=== PATIENT | female | born 1970 | race Caucasian/White ===

== ENCOUNTER 2017-03-17 23:42 | Emergency (ER) | payer BC, OTHER ==
[2017-03-18] MEDS ORDERED: IBUPROFEN 800 MG TABLET PO STA (01:09)
[2017-03-18] MEDS ORDERED: IBUPROFEN 800 MG TABLET PO ONE (01:10)
--- NOTE | 2017-03-18 01:53 | XRAY Preliminary Report ---
Exam: XR Knee 3 View LT IMPRESSION: Mild degenerative changes. No acute bony abnormality. [facility] SITE ID: [id number]
--- NOTE | 2017-03-18 01:56 | XRAY Report ---
EXAM: LEFT KNEE RADIOGRAPHY EXAM DATE: 03/18/2017 01:41 AM. CLINICAL HISTORY: Left knee pain. COMPARISON: None. TECHNIQUE: 3 views. FINDINGS: Bones: Normal. No fractures or bone lesions. Joints: Mild medial and lateral compartment narrowing with small marginal osteophytes. There is no blaise int effusion. Soft Tissues: Normal. No soft tissue swelling. IMPRESSION: Mild degenerative changes. No acute bony abnormality. [facility] Referring Provider Line: [phone] SITE ID: [id number]
--- NOTE | 2017-03-18 02:04 | ED Physician Documentation ---
PD HPI LOWER EXT INJURY - Stated complaint Stated Complaint: LT KNEE PAIN - Chief complaint Chief Complaint: General - History obtained from History obtained from: Patient - History of Present Illness PD HPI LOW EXT INJURY LOCATION: Left, Knee Type of injury: Other (No known injury.) Timing - onset: How many weeks ago (1) Timing - details: Waxing and waning Worsened by: Moving, Other (weight bearing) Associated symptoms: No: Weakness, Numbness Similar symptoms before: Diagnosis (She has undergone arthroscopic surgery for meniscus tear in the past.) - Additional information Additional information: The patient is a 46-year-old female who complains of left knee pain that has been waxing and waning for the past week. It is worse with movement or with weightbearing. She denies any specific injury. Her past history is significant for arthroscopic surgery for meniscus repair of her left knee several years ago. Her job requires her to stand for several hours each day. Review of Systems Constitutional: denies: Fever Nose: reports: Congestion Throat: denies: Sore throat Cardiac: denies: Chest pain / pressure Respiratory: denies: Dyspnea, Cough GI: denies: Abdominal Pain, Nausea : denies: Dysuria Skin: denies: Rash Musculoskeletal: reports: Joint pain (left knee). denies: Back pain Neurologic: denies: Focal weakness, Numbness PD PAST MEDICAL HISTORY - Past Medical History Cardiovascular: None Respiratory: None Neuro: None Endocrine/Autoimmune: None GI: GERD - Past Surgical History Past Surgical History: Yes Ortho: Arthroscopic surgery - Present Medications Home Medications: Ambulatory Orders Medication Instructions Recorded Confirmed Omeprazole [PriLOSEC] 20 mg PO DAILY 11/03/13 03/17/17 Loratadine [Claritin] 10 mg ORAL DAILY 12/06/15 03/17/17 HYDROcod/ACETAM 5/325 [[place] 5/325] 1 - 2 ea PO Q6H PRN #20 tablet 03/18/17 - Allergies Allergies/Adverse Reactions: Allergies Allergy/AdvReac Type Severity Reaction Status Date / Time meperidine HCl * Allergy Unknown Verified 12/06/15 08:24 [From Demerol] Penicillins Allergy Unknown Verified 12/06/15 08:24 - Social History Does the pt smoke?: No Smoking Status: Never smoker Does the pt drink ETOH?: No Does the pt have substance abuse?: No - Immunizations Immunizations are current?: Yes - POLST Patient has POLST: No PD ED PE NORMAL - Vitals Vital signs reviewed: Yes (Borderline systolic hypertension initially.) - General General: Alert and oriented X 3, Well developed/nourished, Other (Overweight.) - HEENT HEENT: Atraumatic - Neck Neck: No adenopathy - Cardiac Cardiac: RRR - Respiratory Respiratory: No respiratory distress - Back Back: No CVA TTP, No spinal TTP - Derm Derm: No rash - Extremities Extremities: No edema, No calf tenderness / cord, Other (There is tenderness to palpation over the infrapatellar aspect of the left knee, more medially than laterally. There is no tenderness to palpation over the medial or lateral joint lines, or in the popliteal fossa. There is no joint effusion appreciated. There is no warmth or erythema. She is able to extend fully and can flex the knee to 90, although flexion exacerbates her discomfort. Distal neurovascular is intact.) - Neuro Neuro: Alert and oriented X 3, No motor deficit, No sensory deficit Results - Vitals Vitals: Oxygen O2 Source Room air - Rads (name of study) left knee Radiology: Prelim report reviewed, EMP read contemporaneously, See rad report ( Mild degenerative changes. No acute bony abnormality.) PD MEDICAL DECISION MAKING - ED course Complexity details: reviewed results, re-evaluated patient, considered differential, d/w patient ED course: The patient's presentation is most consistent with internal derangement of the left knee. There is no clinical evidence to suggest septic joint, and I doubt ligamentous injury. X-ray of the knee reveals mild degenerative changes, with no acute bony abnormality. Treatment in the emergency department included application of a knee immobilizer, and administration of ibuprofen 800 mg orally. She is being discharged with prescription for Vicodin, 20 tablets. I discussed with her the diagnosis, symptomatic treatment and outpatient follow-up , as well as potentially worrisome signs or symptoms that should prompt reevaluation in the emergency department. Departure - Departure Disposition: 01 Home, Self Care Clinical Impression: Internal derangement of left knee Condition: Stable Instructions: ED Knee Pain UKO, ED Meniscal Injury Knee Poss Prescriptions: HYDROcod/ACETAM 5/325 [[place] 5/325] 1 - 2 ea PO Q6H PRN #20 tablet PRN Reason: Pain Comments: Use the knee immobilizer for comfort. Apply ice pack to your knee intermittently for the next 3 or 4 days. You can use ibuprofen, up to 800 mg 3 times daily for its anti-inflammatory effect. He can also use Vicodin as prescribed if needed for pain. Follow-up with your primary physician within 1-2 weeks. Call to schedule appointment. Return to the emergency department if you develop increasing pain or swelling of your knee, or otherwise worsening symptoms. Forms: Activity restrictions Discharge Date/Time: 03/18/17 02:15
[2017-03-18 02:15] VITALS: BP 132/81
== END 2017-03-18 02:15 | disposition home or self-care (01) ==
LOC: ED 23:42
DX: M23.92 Unspecified internal derangement of left knee (principal); Z98.890 Other specified postprocedural states
CPT/HCPCS: 73562; 99283; A9270

== ENCOUNTER 2017-06-06 21:50 | Emergency (ER) | payer BC ==
[2017-06-06] MEDS ORDERED: HYDROcod/ACET 5/325 Prepack 6 PO STA (22:13)
[2017-06-06] MEDS ORDERED: AZITHROMYCIN 250 MG TABLET PO STA (22:13)
--- NOTE | 2017-06-06 22:13 | ED Physician Documentation ---
PD HPI URI - Stated complaint Stated Complaint: FACE PRESSURE/SOA - Chief complaint Chief Complaint: Resp - History obtained from History obtained from: Patient - History of Present Illness Timing - onset: Other (Sick since yesterday with cough, sore throat, shortness of breath, severe facial and sinus pain and ear fullness. No fevers. She needs a note for work tomorrow.) Review of Systems Constitutional: reports: Fatigue. denies: Fever, Chills Ears: reports: Ear pain. denies: Loss of hearing, Drainage/discharge Nose: reports: Rhinorrhea / runny nose, Congestion, Sinus pressure / pain Throat: reports: Sore throat Respiratory: reports: Dyspnea, Cough GI: denies: Abdominal Pain PD PAST MEDICAL HISTORY - Past Medical History Past Medical History: Yes Cardiovascular: None Respiratory: None Neuro: None Endocrine/Autoimmune: None GI: GERD - Past Surgical History Past Surgical History: Yes Ortho: Arthroscopic surgery - Present Medications Home Medications: Ambulatory Orders Medication Instructions Recorded Confirmed Omeprazole [PriLOSEC] 20 mg PO DAILY 11/03/13 06/06/17 Loratadine [Claritin] 10 mg ORAL DAILY 12/06/15 06/06/17 Azithromycin [Zithromax] 250 mg PO DAILY #4 tablet 06/06/17 Guaifenesin/Pseudoephedrne HCl 1 each PO BID PRN #20 tab.er.12h 06/06/17 [Mucinex D ER 600-60 mg Tablet] Mometasone Furoate [Nasonex] 1 spray NS BID #1 spray.pump 06/06/17 - Allergies Allergies/Adverse Reactions: Allergies Allergy/AdvReac Type Severity Reaction Status Date / Time meperidine HCl * Allergy Unknown Verified 06/06/17 21:57 [From Demerol] Penicillins Allergy Unknown Verified 06/06/17 21:57 - Social History Does the pt smoke?: No Smoking Status: Never smoker Does the pt drink ETOH?: No Does the pt have substance abuse?: No - Immunizations Immunizations are current?: Yes - POLST Patient has POLST: No PD ED PE NORMAL - Vitals Vital signs reviewed: Yes - General General: Alert and oriented X 3, No acute distress - HEENT HEENT: PERRL, EOMI, Pharynx benign, Other (Very tender in both maxillary sinuses and she does have right otitis media, the oropharynx is normal.) - Neck Neck: Supple, no meningeal sign, No bony TTP, No bruit - Cardiac Cardiac: RRR, No murmur - Respiratory Respiratory: No respiratory distress, Clear bilaterally - Abdomen Abdomen: Soft, Non tender - Back Back: No CVA TTP, No spinal TTP - Extremities Extremities: No edema, No calf tenderness / cord - Neuro Neuro: Alert and oriented X 3, Normal speech - Psych Psych: Normal mood, Normal affect Results - Vitals Vitals: Vital Signs - 24 hr 06/06/17 06/06/17 06/06/17 21:56 22:07 22:37 Temperature 35.9 C L 36.5 C Heart Rate 78 83 82 Respiratory 18 18 14 Rate Blood Pressure 140/89 H 155/86 H 133/85 H O2 Saturation 99 98 100 Oxygen O2 Source Room air - EKG (time done) 2234 Rate: Rate (enter#) (70) Rhythm: NSR [place]: Normal Intervals: Normal [place] QRS: LVH Ischemia: Normal ST segments Computer interpretation: Agree with computer PD MEDICAL DECISION MAKING - ED course ED course: 46-year-old woman presents with viral URI symptoms and evidence of sinusitis and right otitis media. She is treated with Zithromax noting penicillin allergy , she needed a few pain pills for the facial pain and was given a prepack of Vicodin. Departure - Departure Disposition: 01 Home, Self Care Clinical Impression: ROM (right otitis media) Qualifiers: Otitis media type: suppurative Chronicity: acute Recurrence: not specified as recurrent Spontaneous tympanic membrane rupture: without spontaneous rupture Qualified Code(s): H66.001 - Acute suppurative otitis media without spontaneous rupture of ear drum, right ear Upper respiratory tract infection Qualifiers: URI type: unspecified viral URI Qualified Code(s): J06.9 - Acute upper respiratory infection, unspecified Condition: Good Record reviewed to determine appropriate education?: Yes Instructions: ED Otitis Media Acute Adult Prescriptions: Guaifenesin/Pseudoephedrne HCl [Mucinex D ER 600-60 mg Tablet] 1 each PO BID PRN #20 tab.er.12h PRN Reason: congestion Mometasone Furoate [Nasonex] 1 spray NS BID #1 spray.pump Azithromycin [Zithromax] 250 mg PO DAILY #4 tablet Comments: Call your doctor to arrange a follow-up appointment, make the next available appointment. In the interim, return anytime if worse or if new symptoms develop. Your blood pressure was elevated today on check into the emergency department. This does not mean that you have hypertension, it is a common phenomenon to come to the emergency department and have elevated blood pressure. I recommend that she see your primary care physician within the week to have it rechecked when you are feeling better. Forms: Activity restrictions Discharge Date/Time: 06/06/17 22:37
[2017-06-06] MEDS ORDERED: AZITHROMYCIN 250 MG TABLET PO ONE (22:36)
[2017-06-06] MEDS ORDERED: HYDROcod/ACET 5/325 Prepack 6 PO ONE (22:37)
[2017-06-06 22:38] VITALS: BP 133/85
== END 2017-06-06 22:37 | disposition home or self-care (01) ==
LOC: ED 21:50
DX: H66.001 Acute suppurative otitis media without spontaneous rupture of ear drum, right ear (principal); J06.9 Acute upper respiratory infection, unspecified; B34.9 Viral infection, unspecified; R03.0 Elevated blood-pressure reading, without diagnosis of hypertension
CPT/HCPCS: 93005; 99283; A9270

== ENCOUNTER 2017-07-03 06:03 | Emergency (ER) | payer OTHER, BC ==
[2017-07-03 06:11] VITALS: BP 157/105
--- NOTE | 2017-07-03 06:19 | ED Physician Documentation ---
PD HPI UPPER EXT INJURY - Stated complaint Stated Complaint: L WRIST INJURY - Chief complaint Chief Complaint: Ext Problem - History obtained from History obtained from: Patient - History of Present Illness Location: Left, Wrist Type of injury: Fall Where injury occurred: Work Timing - onset: How many minutes ago (30) Timing - details: Abrupt onset Improved by: Immobilization Worsened by: Moving, Palpating Contributing factors: No: Anticoagulated Similar symptoms before: Has not had sx before Recently seen: Not recently seen - Additonal information Additional information: Patient is a 46 year old female who is presenting to the emergency department for wrist pain. Patient was at work when some boxes fell, and eventually patient fell on an outstretched hand. Patient denies any other injuries at this time. Review of Systems Constitutional: denies: Fever, Chills Eyes: denies: Decreased vision Ears: reports: Reviewed and negative Nose: denies: Epistaxis Throat: reports: Reviewed and negative Cardiac: reports: Reviewed and negative Respiratory: denies: Cough, Wheezing GI: denies: Nausea, Vomiting : reports: Reviewed and negative Skin: denies: Rash, Lesions, Abrasion (s), Laceration (s) Musculoskeletal: reports: Extremity pain, Joint pain, Joint swelling Neurologic: denies: Generalized weakness, Focal weakness, Numbness Psychiatric: reports: Reviewed and negative PD PAST MEDICAL HISTORY - Past Medical History Cardiovascular: None Respiratory: None Neuro: None Endocrine/Autoimmune: None GI: GERD - Past Surgical History Past Surgical History: Yes Ortho: Arthroscopic surgery - Present Medications Home Medications: Ambulatory Orders Medication Instructions Recorded Confirmed Omeprazole [PriLOSEC] 20 mg PO DAILY 11/03/13 06/06/17 Loratadine [Claritin] 10 mg ORAL DAILY 12/06/15 06/06/17 Azithromycin [Zithromax] 250 mg PO DAILY #4 tablet 06/06/17 Guaifenesin/Pseudoephedrne HCl 1 each PO BID PRN #20 tab.er.12h 06/06/17 [Mucinex D ER 600-60 mg Tablet] Mometasone Furoate [Nasonex] 1 spray NS BID #1 spray.pump 06/06/17 - Allergies Allergies/Adverse Reactions: Allergies Allergy/AdvReac Type Severity Reaction Status Date / Time meperidine HCl * Allergy Unknown Verified 07/03/17 06:11 [From Demerol] Penicillins Allergy Unknown Verified 07/03/17 06:11 - Social History Does the pt smoke?: No Smoking Status: Never smoker Does the pt drink ETOH?: No Does the pt have substance abuse?: No - Immunizations Immunizations are current?: Yes - POLST Patient has POLST: No PD ED PE NORMAL - Vitals Vital signs reviewed: Yes - General General: Alert and oriented X 3, No acute distress - HEENT HEENT: Atraumatic, PERRL - Neck Neck: Supple, no meningeal sign - Cardiac Cardiac: RRR, No murmur - Abdomen Abdomen: Soft, Non tender, Non distended - Derm Derm: Normal color, Warm and dry, No rash - Extremities Extremities: No deformity - Neuro Neuro: Alert and oriented X 3, No motor deficit, No sensory deficit, Normal speech - Psych Psych: Normal mood, Normal affect PD ED PE EXPANDED - Extremities Extremities: Left wrist (tenderness and minimal swelling, of left wrist. no bony deformity) Results - Vitals Vitals: Vital Signs - 24 hr 07/03/17 06:08 Temperature 36.3 C L Heart Rate 88 Respiratory 20 Rate Blood Pressure 157/105 H O2 Saturation 98 Oxygen O2 Source Room air - Rads (name of study) wrist x-ray Radiology: Final report received (no acute fracture or dislocation) PD MEDICAL DECISION MAKING - ED course Complexity details: reviewed old records, reviewed results, re-evaluated patient , considered differential, d/w patient, d/w family ED course: Patient was seen and examined at bedside. Patient was sent for imaging. When patient returned from imaging the results were reviewed. there was no acute fracture or dislocation. patient was placed in a wrist splint and treated with toradol. Patient and family complained that they weren't getting multiple days off. Patient was made aware that they could only be given one day off and that they needed to follow up with their provider. 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 Patient required no further inpatient work up and was stable for discharge with outpatient follow up. Departure - Departure Disposition: 01 Home, Self Care Clinical Impression: Sprain of wrist, left Condition: Good Instructions: ED Splint Care Velcro Follow-Up: primary,care provider [Other] - Within 1 week Comments: Your diagnostics today were within normal limits. there was no acute fracture or dislocation. You can take motrin or tylenol as needed for pain. You should ice your wrist at least 4 times a day. if your symptoms persist for more than 10 days you should return for repeat imaging. Forms: Activity restrictions Discharge Date/Time: 07/03/17 07:15
--- NOTE | 2017-07-03 06:45 | XRAY Preliminary Report ---
Exam: XR WRIST 4 VIEW LT IMPRESSION: 1. No acute fracture or dislocation seen. [facility] SITE ID: [id number]
--- NOTE | 2017-07-03 06:48 | XRAY Report ---
EXAM: LEFT WRIST RADIOGRAPHY EXAM DATE: 07/03/2017 06:37 AM. CLINICAL HISTORY: Fall left wrist pain. COMPARISON: None. TECHNIQUE: 4 views. FINDINGS: Bones: No acute fracture seen. Joints: No dislocation. Joint spaces are relatively well preserved. Soft Tissues: Mild soft tissue swelling. IMPRESSION: 1. No acute fracture or dislocation seen. [facility] Referring Provider Line: [phone] SITE ID: [id number]
[2017-07-03] MEDS ORDERED: KETOROLAC 60 MG/2 ML VIAL IM STA (07:02)
== END 2017-07-03 07:15 | disposition home or self-care (01) ==
LOC: ED 06:03
DX: S63.502A Unspecified sprain of left wrist, initial encounter (principal); W01.198A Fall on same level from slipping, tripping and stumbling with subsequent striking against other object, initial encounter; Y99.0 Civilian activity done for income or pay; K21.9 Gastro-esophageal reflux disease without esophagitis
CPT/HCPCS: 99283

== ENCOUNTER 2017-08-18 08:52 | Outpatient (CLI) | payer OTHER, BC ==
--- NOTE | 2017-08-18 16:20 | XRAY Report ---
EXAM: LEFT WRIST RADIOGRAPHY EXAM DATE: 08/18/2017 09:07 AM. CLINICAL HISTORY: Follow-up fracture COMPARISON: 07/17/2017 and 07/03/2017. TECHNIQUE: 4 views. FINDINGS: Bones: No acute or healing fracture. Joints: Mildly widened scapholunate interval. No subluxation or dislocation. Soft Tissues: Normal. No soft tissue swelling. IMPRESSION: 1. Mildly widened scapholunate interval, suspicious for ligamentous injury. 2. No acute or healing fracture. [facility] Referring Provider Line: [phone] SITE ID: [id number]
== END 2017-08-18 08:53 | disposition home or self-care (01) ==
LOC: DI 08:52
PROVIDERS: ATTEND Family Medicine
DX: S52.572A Other intraarticular fracture of lower end of left radius, initial encounter for closed fracture (principal)

== ENCOUNTER 2017-10-05 07:40 | Outpatient (CLI) | payer OTHER, BC ==
--- NOTE | 2017-10-06 13:54 | MRI Report ---
EXAM: LEFT WRIST MRI WITHOUT CONTRAST EXAM DATE: 10/05/2017 09:04 AM. CLINICAL HISTORY: Nondisplaced fracture of proximal third of navicular. COMPARISON: Plain x-ray 08/18/2017. TECHNIQUE: Multiplanar, multisequence T1-weighted and fluid-sensitive sequences of the wrist without contrast. Other: None. FINDINGS: Bones: No fractures or subluxations. No marrow edema. No bone lesions. Cartilage: The articular cartilage is unremarkable. TFCC shows no focal defects, there is a small carlos enrique unt of fluid in the distal radioulnar joint however. Ligaments: Scapholunate ligament is torn. Series 801 image 28, series 701 image 8. Lunotriquetral lig ament is normal. Other intrinsic ligaments of the carpal bones appear unremarkable. On the sagittal, the distal portion of the dorsal radiocarpal ligament is not well seen and appears to be foreshortene d. Tendons: There is a small amount of fluid within the second, third, and fourth extensor compartment. Mild tenosynovitis is present. Flexor tendons appear unremarkable. Musculature: No edema or fatty atrophy. Other: The contents of the carpal tunnel, including the median nerve, are unremarkable. Guyons canal is unremarkable. No ganglion cysts. No joint effusions. Mild dorsal soft tissue swelling. IMPRESSION: 1. Scapholunate ligament is torn. The lunotriquetral ligament is unremarkable. On the sagittal, dista l portion of the dorsal radiocarpal ligament is not well seen and appears to be torn. 2. No fractures. 3. TFCC appears unremarkable, there is some fluid in the distal radioulnar joint however. 4. No fractures. [facility] MUSCULOSKELETAL RADIOLOGY SECTION Referring Provider Line: [phone] SITE ID: [id number]
== END 2017-10-05 07:41 | disposition home or self-care (01) ==
LOC: DI 07:40
PROVIDERS: ATTEND Family Medicine
DX: S63.512A Sprain of carpal joint of left wrist, initial encounter (principal)

== ENCOUNTER 2018-01-07 19:06 | Emergency (ER) | payer BC, OTHER ==
[2018-01-07 19:12] VITALS: BP 174/103
[2018-01-07] MEDS ORDERED: HYDROcod/ACETAM 5/325 MG TABLET PO STA (19:24)
--- NOTE | 2018-01-07 19:26 | ED Physician Documentation ---
PD HPI HEENT - Stated complaint Stated Complaint: EAR/FACE PX - Chief complaint Chief Complaint: Heent - History obtained from History obtained from: Patient - History of Present Illness Timing - onset: Other (2 days of bilateral maxillary sinus pain and left ear pressure with hearing loss but no fevers or cough.) Review of Systems Constitutional: denies: Fever, Chills Nose: reports: Rhinorrhea / runny nose, Congestion, Sinus pressure / pain Throat: denies: Sore throat Cardiac: denies: Chest pain / pressure, Palpitations Respiratory: denies: Dyspnea, Cough PD PAST MEDICAL HISTORY - Past Medical History Past Medical History: Yes Cardiovascular: None Respiratory: None Neuro: None Endocrine/Autoimmune: None GI: GERD - Past Surgical History Past Surgical History: Yes Ortho: Arthroscopic surgery - Present Medications Home Medications: Ambulatory Orders Medication Instructions Recorded Confirmed Omeprazole [PriLOSEC] 20 mg PO DAILY 11/03/13 06/06/17 Loratadine [Claritin] 10 mg ORAL DAILY 12/06/15 06/06/17 Guaifenesin/Pseudoephedrne HCl 1 each PO BID PRN #20 tab.er.12h 06/06/17 [Mucinex D ER 600-60 mg Tablet] Cephalexin [Keflex] 500 mg PO QID #40 capsule 01/07/18 HYDROcod/ACETAM 5/325 [[place] 5/325] 1 - 2 ea PO Q6H PRN #15 tablet 01/07/18 predniSONE [Deltasone] 60 mg PO DAILY 5 Days tablet 01/07/18 - Allergies Allergies/Adverse Reactions: Allergies Allergy/AdvReac Type Severity Reaction Status Date / Time meperidine HCl * Allergy Unknown Verified 01/07/18 19:12 [From Demerol] Penicillins Allergy Unknown Verified 01/07/18 19:12 - Social History Does the pt smoke?: No Smoking Status: Never smoker Does the pt drink ETOH?: No Does the pt have substance abuse?: No - Immunizations Immunizations are current?: Yes - POLST Patient has POLST: No PD ED PE NORMAL - Vitals Vital signs reviewed: Yes - General General: Alert and oriented X 3, No acute distress - HEENT HEENT: PERRL, EOMI, Other (Bilateral maxillary sinus tenderness, left otitis media, right TM normal, oropharynx normal.) - Neck Neck: Supple, no meningeal sign, No bony TTP - Derm Derm: Normal color, Warm and dry, No rash - Neuro Neuro: Alert and oriented X 3 - Psych Psych: Normal mood, Normal affect Results - Vitals Vitals: Vital Signs - 24 hr 01/07/18 19:09 Temperature 36.5 C Heart Rate 78 Respiratory 20 Rate Blood Pressure 174/103 H O2 Saturation 99 Oxygen O2 Source Room air Departure - Departure Disposition: 01 Home, Self Care Clinical Impression: LOM (left otitis media) Qualifiers: Otitis media type: suppurative Chronicity: acute Recurrence: recurrent Spontaneous tympanic membrane rupture: without spontaneous rupture Qualified Code(s): H66.005 - Acute suppurative otitis media without spontaneous rupture of ear drum, recurrent, left ear Condition: Good Record reviewed to determine appropriate education?: Yes Instructions: ED Otitis Media Acute Adult Prescriptions: Cephalexin [Keflex] 500 mg PO QID #40 capsule HYDROcod/ACETAM 5/325 [[place] 5/325] 1 - 2 ea PO Q6H PRN #15 tablet PRN Reason: Pain predniSONE [Deltasone] 60 mg PO DAILY 5 Days tablet Comments: Call your doctor to arrange a follow-up appointment, make the next available appointment. In the interim, return anytime if worse or if new symptoms develop. Your blood pressure was elevated today on check into the emergency department. This does not mean that you have hypertension, it is a common phenomenon to come to the emergency department and have elevated blood pressure. I recommend that you see your primary care physician within the week to have it rechecked when you are feeling better.
== END 2018-01-07 19:43 | disposition home or self-care (01) ==
LOC: ED 19:06
DX: H66.005 Acute suppurative otitis media without spontaneous rupture of ear drum, recurrent, left ear (principal)
CPT/HCPCS: 99283; A9270

== ENCOUNTER 2018-04-07 16:51 | Emergency (ER) | payer BC, OTHER ==
[2018-04-07 17:04] VITALS: BP 140/81
--- NOTE | 2018-04-07 18:08 | XRAY Report ---
Procedure Date: 04/07/2018 Accession Number: [id number] / [id number] Procedure: XR - Knee 4 View RT CPT Code: FULL RESULT: EXAM: RIGHT KNEE RADIOGRAPHY EXAM DATE: 04/07/2018 05:32 PM. CLINICAL HISTORY: Rt knee pain, GLF. COMPARISON: None. TECHNIQUE: 3 views. FINDINGS: Bones: Normal. No fractures or bone lesions. Joints: Mild narrowing of the medial joint compartment with subchondral cystic changes and minimal marginal spurring. There is no joint effusion. Soft Tissues: Normal. No soft tissue swelling. IMPRESSION: No fracture. Minor medial compartment degenerative changes. [facility]
--- NOTE | 2018-04-07 18:30 | ED Physician Documentation ---
PD HPI LOWER EXT INJURY - Stated complaint Stated Complaint: R KNEE PX - Chief complaint Chief Complaint: Ext Problem - History obtained from History obtained from: Patient - History of Present Illness PD HPI LOW EXT INJURY LOCATION: Right, Knee Type of injury: No: Fall, Twist Where injury occurred: Home Timing - onset: How many weeks ago (2) Timing - details: Gradual onset (she awoke with pain 2 weeks ago and knee has been hurting with walking and ROM. It clicks and pops at times. Today in garden , it gave out on her and hurts more.), Still present Improved by: Rest Worsened by: Moving, Other (rom) Associated symptoms: Swelling. No: Weakness, Numbness Similar symptoms before: Has not had sx before Recently seen: Not recently seen Review of Systems Constitutional: denies: Fever Nose: denies: Rhinorrhea / runny nose, Congestion Throat: denies: Sore throat Respiratory: denies: Cough GI: denies: Vomiting, Diarrhea Skin: denies: Rash, Lesions, Abrasion (s), Laceration (s) Musculoskeletal: reports: Joint pain (right knee), Pain with weight bearing Neurologic: denies: Focal weakness, Numbness PD PAST MEDICAL HISTORY - Past Medical History Cardiovascular: None Respiratory: None Endocrine/Autoimmune: None GI: GERD Musculoskeletal: Osteoarthritis - Past Surgical History Past Surgical History: Yes Ortho: Arthroscopic surgery - Present Medications Home Medications: Ambulatory Orders Medication Instructions Recorded Confirmed Omeprazole [PriLOSEC] 20 mg PO DAILY 11/03/13 06/06/17 Loratadine [Claritin] 10 mg ORAL DAILY 12/06/15 06/06/17 Guaifenesin/Pseudoephedrne HCl 1 each PO BID PRN #20 tab.er.12h 06/06/17 [Mucinex D ER 600-60 mg Tablet] Cephalexin [Keflex] 500 mg PO QID #40 capsule 01/07/18 HYDROcod/ACETAM 5/325 [[place] 5/325] 1 - 2 ea PO Q6H PRN #15 tablet 01/07/18 predniSONE [Deltasone] 60 mg PO DAILY 5 Days tablet 01/07/18 Methocarbamol [Robaxin] 500 mg PO Q6H PRN #25 tablet 04/07/18 Naproxen [Naprosyn] 500 mg PO BID PRN #20 tablet 04/07/18 Tramadol HCl 50 mg PO Q6H PRN #15 tablet 04/07/18 - Allergies Allergies/Adverse Reactions: Allergies Allergy/AdvReac Type Severity Reaction Status Date / Time meperidine HCl * Allergy Unknown Verified 04/07/18 17:05 [From Demerol] Penicillins Allergy Unknown Verified 04/07/18 17:05 - Social History Does the pt smoke?: No Smoking Status: Never smoker Does the pt drink ETOH?: No Does the pt have substance abuse?: No - Immunizations Immunizations are current?: Yes - POLST Patient has POLST: No PD ED PE NORMAL - Vitals Vital signs reviewed: Yes - General General: Alert and oriented X 3, No acute distress, Well developed/nourished - Derm Derm: Normal color, Warm and dry - Extremities Extremities: Other (mild effusion right knee. Pain with ROM. No cruciate laxity nor pain on testing. Pain with lateral movements but more c/w meniscal than collaterals (pain with loading and not stretching on each side). ) - Neuro Neuro: Alert and oriented X 3, No motor deficit, No sensory deficit Results - Vitals Vitals: Vital Signs - 24 hr 04/07/18 16:57 Temperature 36.4 C L Heart Rate 88 Respiratory 18 Rate Blood Pressure 140/81 H O2 Saturation 97 Oxygen O2 Source Room air - Rads (name of study) right knee Radiology: Prelim report reviewed (arthritic changes; no acute process) PD MEDICAL DECISION MAKING - ED course Complexity details: considered differential (sounds likely meniscal. ), d/w patient - Sepsis Event Vital Signs: Vital Signs - 24 hr 04/07/18 16:57 Temperature 36.4 C L Heart Rate 88 Respiratory 18 Rate Blood Pressure 140/81 H O2 Saturation 97 Oxygen O2 Source Room air Departure - Departure Disposition: 01 Home, Self Care Clinical Impression: Right knee pain Qualifiers: Chronicity: acute Qualified Code(s): M25.561 - Pain in right knee Acute meniscal injury of right knee Qualifiers: Encounter type: initial encounter Qualified Code(s): S83.8X1A - Sprain of other specified parts of right knee, initial encounter Condition: Stable Record reviewed to determine appropriate education?: Yes Instructions: ED Meniscal Injury Knee Poss Follow-Up: [facility] [Provider Group] Prescriptions: Methocarbamol [Robaxin] 500 mg PO Q6H PRN #25 tablet PRN Reason: Spasms Naproxen [Naprosyn] 500 mg PO BID PRN #20 tablet PRN Reason: Pain Tramadol HCl 50 mg PO Q6H PRN #15 tablet PRN Reason: Pain Comments: Use a knee brace when up and around. You can have it off when rested or sleep. heat to the knee periodically if that allows it to feel better. Naproxen or ibuprofen 2-3 times a day for inflammation and pain. You could add Robaxin for muscle spasms and stiffness. Add Tylenol or tramadol if needed for pain. Follow-up with orthopedics in the next week or so. Call tomorrow morning for an appointment time and tell them you are seen here in the ER. I think it is your cartilage or meniscus that is bothering you and will see how much better days with a knee brace and anti-inflammatories and then see what orthopedics wants to do after that. Forms: Activity restrictions Discharge Date/Time: 04/07/18 19:24
[2018-04-07] MEDS ORDERED: IBUPROFEN 600 MG TABLET PO STA (18:47)
[2018-04-07] MEDS ORDERED: HYDROcod/ACETAM 5/325 MG TABLET PO STA (18:47)
[2018-04-07] MEDS ORDERED: METHOCARBAMOL 500 MG TABLET PO STA (18:48)
== END 2018-04-07 19:24 | disposition home or self-care (01) ==
LOC: ED 16:51
DX: M25.561 Pain in right knee (principal); S83.8X1A Sprain of other specified parts of right knee, initial encounter; X50.9XXA Other and unspecified overexertion or strenuous movements or postures, initial encounter; Y93.H2 Activity, gardening and landscaping; Y92.007 Garden or yard of unspecified non-institutional (private) residence as the place of occurrence of the external cause
CPT/HCPCS: 73564; 99283; A9270

== ENCOUNTER 2018-05-19 10:03 | Emergency (ER) | payer OTHER ==
--- NOTE | 2018-05-19 12:06 | ED Physician Documentation ---
PD HPI URI - Stated complaint Stated Complaint: DIZZINESS/SINUS PX - Chief complaint Chief Complaint: General - History obtained from History obtained from: Patient - History of Present Illness Timing - onset: How many days ago (2-3) Timing duration: Days Timing details: Gradual onset, Still present Associated symptoms: Ear pain (and vertigo today), Sinus pain, Sore throat. No : Fever, Productive cough Contributing factors: No: Sick contact, Travel, Immunocompromised Similar symptoms before: Diagnosis (sinusitis with vertiog episodes couple times in the past. Has been bacterial in the past, per patient.) Recently seen: Not recently seen Review of Systems Constitutional: denies: Fever, Chills, Myalgias Eyes: denies: Loss of vision, Decreased vision, Photophobia Ears: reports: Ear pain. denies: Loss of hearing, Tinnitus/ringing Nose: reports: Congestion, Sinus pressure / pain Throat: denies: Sore throat Cardiac: denies: Chest pain / pressure, Palpitations Respiratory: denies: Dyspnea, Cough GI: denies: Nausea, Vomiting, Diarrhea Skin: denies: Rash, Lesions PD PAST MEDICAL HISTORY - Past Medical History Past Medical History: Yes Cardiovascular: None Respiratory: None Endocrine/Autoimmune: None GI: GERD Musculoskeletal: Osteoarthritis - Past Surgical History Past Surgical History: Yes Ortho: Arthroscopic surgery - Present Medications Home Medications: Ambulatory Orders Medication Instructions Recorded Confirmed Omeprazole [PriLOSEC] 20 mg PO DAILY 11/03/13 06/06/17 Loratadine [Claritin] 10 mg ORAL DAILY 12/06/15 06/06/17 Cephalexin [Keflex] 500 mg PO TID #20 capsule 05/19/18 Dexamethasone [Decadron] 4 mg PO DAILY #5 tablet 05/19/18 Meclizine [Antivert] 25 mg PO Q6H PRN #30 tablet 05/19/18 Tramadol HCl 50 mg PO Q6H PRN #15 tablet 05/19/18 - Allergies Allergies/Adverse Reactions: Allergies Allergy/AdvReac Type Severity Reaction Status Date / Time meperidine HCl * Allergy Unknown Verified 04/07/18 17:05 [From Demerol] Penicillins Allergy Unknown Verified 04/07/18 17:05 - Social History Does the pt smoke?: No Smoking Status: Never smoker Does the pt drink ETOH?: No Does the pt have substance abuse?: No - Immunizations Immunizations are current?: Yes - POLST Patient has POLST: No PD ED PE NORMAL - Vitals Vital signs reviewed: Yes - General General: Alert and oriented X 3, No acute distress, Well developed/nourished - HEENT HEENT: PERRL, EOMI (mild nystagmus to the left. ), Ears normal, Moist mucous membranes, Pharynx benign, Other (frontal sinus pressure with head foreard and with percussion over area. ) - Neck Neck: Supple, no meningeal sign, No adenopathy - Cardiac Cardiac: RRR, No murmur - Respiratory Respiratory: Clear bilaterally Results - Vitals Vitals: Oxygen O2 Source Room air PD MEDICAL DECISION MAKING - ED course Complexity details: considered differential (sinus symptoms and peripheral vertigo symptoms. No other neuro symptoms. Likely viral sinus process, but patient says history of bacterial sinusitis with these symptoms. ), d/w patient - Sepsis Event Vital Signs: Oxygen O2 Source Room air Departure - Departure Disposition: Home, Self Care Clinical Impression: Vertigo Sinusitis, acute Qualifiers: Sinusitis location: unspecified location Recurrence: non-recurrent Qualified Code(s): J01.90 - Acute sinusitis, unspecified Condition: Stable Record reviewed to determine appropriate education?: Yes Instructions: ED Sinusitis Abx Tx, ED Vertigo Unspecified Prescriptions: Cephalexin [Keflex] 500 mg PO TID #20 capsule Dexamethasone [Decadron] 4 mg PO DAILY #5 tablet Meclizine [Antivert] 25 mg PO Q6H PRN #30 tablet PRN Reason: Vertigo Tramadol HCl 50 mg PO Q6H PRN #15 tablet PRN Reason: Pain Comments: Drink lots of fluids. Saline nasal spray several times a day to cleanse the sinus and nasal passage. Tylenol or ibuprofen if needed for pains. Add tramadol if needed. Keflex 3 times a day for a week for sinus infection. Decadron daily for 5 more days to reduce inflammation of the sinuses. Meclizine as needed for dizziness. Recheck if not improving over the next few days. Rest off work for today and tomorrow. Forms: Activity restrictions Discharge Date/Time: 05/19/18 12:59
[2018-05-19] MEDS ORDERED: traMADol 50 MG TABLET PO STA (12:37)
[2018-05-19] MEDS ORDERED: MECLIZINE 12.5 MG TABLET PO STA (12:37)
[2018-05-19] MEDS ORDERED: DEXAMETHASONE 10 MG/ML VIAL PO STA (12:37)
[2018-05-19 12:49] VITALS: BP 149/98
== END 2018-05-19 12:59 | disposition home or self-care (01) ==
LOC: ED 10:03
DX: R42 Dizziness and giddiness (principal); J01.90 Acute sinusitis, unspecified
CPT/HCPCS: 99283; A9270

== ENCOUNTER 2019-01-09 17:58 | Emergency (ER) | payer OTHER ==
[2019-01-09] MEDS ORDERED: DEXAMETHASONE 10 MG/ML VIAL PO STA (20:15)
[2019-01-09] MEDS ORDERED: CHERRY SYRUP 10 ML UDC PO ONE (20:15)
--- NOTE | 2019-01-09 20:18 | ED Physician Documentation ---
PD HPI Fall - Stated complaint Stated Complaint: GLF/BODY PX - Chief complaint Chief Complaint: Ext Problem - History obtained from History obtained from: Patient - History of Present Illness Mechanism of injury: Tripped Fall distance: Standing position Where injury occurred: Home Timing - onset: Yesterday Injury(ies) location: Other (pain all over. ribs, back, hips, legs moving slow.) Quality of pain: Pain, Aching, Dull Associated symptoms: No: LOC, AMS, Amnesia, Seizures, Ear drainage, Nasal drainage, Neck pain, Weakness, Paresthesias, Dyspnea, Nausea / vomiting, Hematemesis, Abdominal distension Symptoms improve with: Rest Worsens with: Movement, Palpation Contributing factors: No: Anticoagulated, Intoxicated Similar symptoms before: Has not had sx before Recently seen: Not recently seen - Additional information Additional information: 48-year-old female in her usual state of health was out walking in her yard to look at the trees and she stepped into a right and fell forward. She did not collapse all the way to the ground she did catch herself with her left hand and she got up and walked back into her house. Within hours she began to experience pain through the rest of her body. 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 She is having trouble moving around and getting out of bed secondary to pain pretty much all over. Review of Systems Constitutional: reports: Myalgias. denies: Fever, Chills, Fatigue Eyes: denies: Decreased vision Ears: denies: Ear pain Nose: denies: Rhinorrhea / runny nose, Congestion Throat: denies: Sore throat Cardiac: denies: Chest pain / pressure, Palpitations Respiratory: denies: Dyspnea, Cough GI: reports: Abdominal Pain, Constipation. denies: Nausea, Vomiting, Diarrhea : denies: Dysuria, Frequency Skin: denies: Rash Musculoskeletal: reports: Back pain, Extremity pain. denies: Neck pain, Extremity swelling, Joint swelling Neurologic: denies: Generalized weakness, Focal weakness, Numbness PD PAST MEDICAL HISTORY - Past Medical History Past Medical History: Yes Cardiovascular: None Respiratory: None Endocrine/Autoimmune: None GI: GERD Musculoskeletal: Osteoarthritis - Past Surgical History Past Surgical History: Yes Ortho: Arthroscopic surgery - Present Medications Home Medications: Ambulatory Orders Medication Instructions Recorded Confirmed Omeprazole [PriLOSEC] 20 mg PO DAILY 11/03/13 06/06/17 Loratadine [Claritin] 10 mg ORAL DAILY 12/06/15 06/06/17 Cyclobenzaprine [Flexeril] 10 mg PO TID PRN #20 tablet 01/09/19 Hydrocodone/Acetaminophen 1 - 2 each PO Q6H PRN #14 tablet 01/09/19 [Hydrocodon-Acetaminophen 5-325] - Allergies Allergies/Adverse Reactions: Allergies Allergy/AdvReac Type Severity Reaction Status Date / Time meperidine HCl * Allergy Unknown Verified 01/09/19 18:21 [From Demerol] Penicillins Allergy Unknown Verified 01/09/19 18:21 - Social History Does the pt smoke?: No Smoking Status: Never smoker Does the pt drink ETOH?: No Does the pt have substance abuse?: No - Immunizations Immunizations are current?: Yes - POLST Patient has POLST: No PD ED PE NORMAL - Vitals Vital signs reviewed: Yes (hypertensive ) - General General: Alert and oriented X 3, Well developed/nourished, Other (48 y/o female who sits motionless and grunts in pain with any movement. ) - HEENT HEENT: Atraumatic, PERRL, EOMI, Ears normal, Other (dry mucous membranes no sinus point tenderness. ) - Neck Neck: Supple, no meningeal sign - Cardiac Cardiac: RRR, No murmur - Respiratory Respiratory: No respiratory distress, Clear bilaterally - Abdomen Abdomen: Soft, Other (mild central suprapubic tenderness ) - Back Back: No CVA TTP, No spinal TTP - Derm Derm: Normal color, Warm and dry, No rash - Extremities Extremities: No deformity, No edema - Neuro Neuro: Alert and oriented X 3, vp platforms 2-12 intact, No motor deficit, No sensory deficit, Normal speech Eye Opening: Spontaneous Motor: Obeys Commands Verbal: Oriented GCS Score: 15 - Psych Psych: Normal mood, Normal affect Results - Vitals Vitals: Vital Signs - 24 hr 01/09/19 18:19 Temperature 36.8 C Heart Rate 90 Respiratory 18 Rate Blood Pressure 159/92 H O2 Saturation 95 Oxygen O2 Source Room air - Labs Labs: Laboratory Tests 01/09/19 20:24 Urine Color DARK YELLOW Urine Clarity CLEAR Urine pH 6.0 Ur Specific [place] 1.025 Urine Protein NEGATIVE Urine Glucose (UA) NEGATIVE Urine Ketones NEGATIVE Urine Occult Blood NEGATIVE Urine Nitrite NEGATIVE Urine Bilirubin NEGATIVE Urine Urobilinogen 1 (NORMAL) Ur Leukocyte Esterase NEGATIVE Ur Microscopic Review NOT INDICATED Urine Culture Comments NOT INDICATED PD MEDICAL DECISION MAKING - ED course Complexity details: reviewed old records, reviewed results, re-evaluated patient, considered differential, d/w patient ED course: 48-year-old female with a jarring fall into a hole has no specific area of pain has pain generally all over and I was certain I would find infection somewhere else and this we did not find. She was given a dose of dexamethasone here in the emergency department we will treat her with some pain medication and muscle relaxant and give her a note for work for 3 days. Departure - Departure Disposition: 01 Home, Self Care Clinical Impression: Whole body pain Condition: Stable Instructions: ED Muscle Aching Follow-Up: Cruz Pinto DO [Provider Admit Priv/Credential] - Prescriptions: Cyclobenzaprine [Flexeril] 10 mg PO TID PRN #20 tablet PRN Reason: Spasms Hydrocodone/Acetaminophen [Hydrocodon-Acetaminophen 5-325] 1 - 2 each PO Q6H PRN #14 tablet PRN Reason: pain Forms: Activity restrictions
[2019-01-09 20:32] LABS: BILIRUBIN,URINE NEGATIVE (NEGATIVE); GLUCOSE, URINE (UA) NEGATIVE (NEGATIVE); KETONES,URINE (UA) NEGATIVE (NEGATIVE); LEUKOCYTE ESTERASE, URINE NEGATIVE (NEGATIVE); NITRITE,URINE NEGATIVE (NEGATIVE); OCCULT BLOOD,URINE NEGATIVE (NEGATIVE); PROTEIN,URINE NEGATIVE (NEGATIVE); UROBILINOGEN,URINE 1 (NORMAL) E.U./dL (NORMAL)
[2019-01-09 20:36] LABS: CLARITY,URINE CLEAR (CLEAR)
[2019-01-09] MEDS ORDERED: HYDROcod/ACET 5/325 Prepack 4 PO STA (20:59)
[2019-01-09 21:01] VITALS: BP 133/89
== END 2019-01-09 21:07 | disposition home or self-care (01) ==
LOC: ED 17:58
DX: M54.9 Dorsalgia, unspecified (principal); M25.551 Pain in right hip; M25.552 Pain in left hip; R07.81 Pleurodynia; M79.605 Pain in left leg; M79.604 Pain in right leg; M79.18 Myalgia, other site; W17.2XXA Fall into hole, initial encounter; Y93.01 Activity, walking, marching and hiking; Y92.007 Garden or yard of unspecified non-institutional (private) residence as the place of occurrence of the external cause; M19.90 Unspecified osteoarthritis, unspecified site
CPT/HCPCS: 81003; 99283; A9270; 81001; 87086

== ENCOUNTER 2022-11-10 13:19 | Emergency (ER) | payer OTHER ==
[2022-11-10 13:32] VITALS: BP 175/92
--- NOTE | 2022-11-10 13:39 | ED Physician Documentation ---
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 It is particularly bad after a day at work. She has a history of a fracture on the opposite side but there was no recollected injury on this side. She has been taking anti-inflammatories and Tylenol with modest relief. PD PAST MEDICAL HISTORY - Past Medical History Cardiovascular: None Respiratory: None Endocrine/Autoimmune: None GI: GERD Musculoskeletal: Osteoarthritis - Past Surgical History Past Surgical History: Yes Ortho: Arthroscopic surgery - Present Medications Home Medications: Ambulatory Orders Medication Instructions Recorded Confirmed Omeprazole [PriLOSEC] 20 mg PO DAILY 11/03/13 06/06/17 Loratadine [Claritin] 10 mg ORAL DAILY 12/06/15 06/06/17 Cyclobenzaprine [Flexeril] 10 mg PO TID PRN #20 tablet 01/09/19 Hydrocodone/Acetaminophen 1 - 2 each PO Q6H PRN #14 tablet 01/09/19 [Hydrocodon-Acetaminophen 5-325] HYDROcod/ACETAM 5/325 [[place] 5/325] 1 - 2 tab PO Q6H PRN #20 tablet 11/10/22 - Allergies Allergies/Adverse Reactions: Allergies Allergy/AdvReac Type Severity Reaction Status Date / Time meperidine HCl * Allergy Unknown Verified 11/10/22 13:31 [From Demerol] Penicillins Allergy Unknown Verified 11/10/22 13:31 - Social History Does the pt smoke?: No Smoking Status: Never smoker Does the pt drink ETOH?: No Does the pt have substance abuse?: No - Immunizations Immunizations are current?: Yes - POLST Patient has POLST: No PD ED PE NORMAL - Vitals Vital signs reviewed: Yes - General General: Alert and oriented X 3, No acute distress - Extremities Extremities: Other (Quite tender over the fifth metatarsal of the left foot. No deformity. No other foot or ankle tenderness.) - Neuro Neuro: Alert and oriented X 3, Normal speech Results - Vitals Vitals: Vital Signs - 24 hr 11/10/22 13:27 Temperature 36.7 C Heart Rate 87 Respiratory 16 Rate Blood Pressure 175/92 H O2 Saturation 98 Oxygen O2 Source Room air - Rads (name of study) L foot XR Radiology: Final report received, EMP read indepedently PD Medical Decision Making - ED course ED course: She presents with subacute to chronic pain of the insertion of the peroneal tendon on the fifth metatarsal of the left foot. Probably related to overuse at work. No specific trauma. X-ray negative for fracture but does show osteoarthritis and a calcaneal entheosophye. Placed in a walking boot for comfort, advised NSAIDs but she needs something stronger at night which was prescribed. Recommended podiatry follow-up. Departure - Departure Disposition: Home, Self Care Clinical Impression: Tendinitis of left foot Condition: Good Record reviewed to determine appropriate education?: Yes Instructions: Tendonitis and Tenosynovitis Follow-Up: Edmundo Giang, JENN [Physician No Access] - Prescriptions: HYDROcod/ACETAM 5/325 [[place] 5/325] 1 - 2 tab PO Q6H PRN #20 tablet PRN Reason: Pain Comments: As discussed, your x-ray does not show a fracture, but it does show a calcaneal enthesophyte, A sign of chronic inflammation of the plantar fascia. That is not related to your current pain, that seems more like a tendinitis at the insertion of the peroneal tendon of the left foot. You can continue anti-inflammatories like ibuprofen during the day and I am prescribing something for nighttime use that is stronger. Recommend you follow-up with a workers compensation analyst for further evaluation and treatment. Return for new or worsening symptoms. I sent the prescription electronically to [facility] in [place]. I am prescribing a short course of narcotic pain medication for you. These are potentially dangerous and addictive medications that should be used carefully. These medications may constipate you. Take an vjfs-dnv-eyyogen stool softener (docusate) twice daily with plenty of water while taking these medications. If you go 24 hours without a bowel movement, take [id number] miralax, per package instructions. Do not drink or drive while taking these medications. If you received narcotic or sedating medications while in the emergency department, do not drive for 24 hours. Store this medication in a safe, secure place and out of reach of children. It is a violation of federal law to give or sell this medication to another person or to use in a manner other than prescribed. The ED will not refill narcotic prescriptions, including prescriptions lost or stolen. To dispose of unwanted medications: 1. [facility] at [address] in [place] has a medication drop box. They accept prescription medications (in pill form) Saturday through Saturday 9:00 a.m. to 5:00 p.m. 2. The [facility] accepts prescription medications (in pill form only) for disposal year round. Call for more information. 3. Contact the [facility] for the next [facility] sponsored prescription drug collection event. , [phone], or [phone]; Note that many narcotic pain relievers also contain Tylenol/acetaminophen. Please ensure that your total dose of acetaminophen from all sources does not exceed 3 g (3000 mg) per day.
--- NOTE | 2022-11-10 14:00 | XRAY Report ---
PROCEDURE: Foot 3 View LT INDICATIONS: foot pain TECHNIQUE: 3 views of the foot were acquired. COMPARISON: None FINDINGS: Bones: No fractures or dislocations. No suspicious bony lesions. Mild osteoarthritic changes are se en in forefoot joints more notably at first and second MTP joints. Well-defined plantar calcaneal ent hesophyte is seen. Soft tissues: No tibiotalar joint effusion. Achilles tendon appears normal. IMPRESSION: No acute left foot fracture or dislocation. Calcaneal enthesophyte. Mild forefoot joint osteoarthriti s. Reviewed by: Austyn Walls MD on 11/10/2022 1:58 PM PST Approved by: Austyn Walls MD on 11/10/2022 1:58 PM PST Station ID: [id number]
== END 2022-11-10 14:33 | disposition home or self-care (01) ==
LOC: ED 13:19
DX: M77.8 Other enthesopathies, not elsewhere classified (principal); M77.32 Calcaneal spur, left foot
CPT/HCPCS: 99283